=== PATIENT | female | born 1955 ===

== ENCOUNTER 2024-09-20 08:30 | Outpatient (AMB) | payer MEDICARE, SELFPAY ==
--- OUTSIDE RECORDS SUMMARY | 2024-09-20 08:41 | XMS_ITS | Patient Health Record ---
Author Organization [facility] Address [address] [facility] [address] [place] [address] Care Team Providers Care Associate Accountant Name Role Phone Oziel He MD Primary Care Provider Unavailab Piedad Lux Unavailable [phone] Allergies Allergen (clinical drug ingredient) Drug/Non Drug Allergy documented on EMR Reaction Allergy Type Onset Date Status meperidine DEMEROL Nausea/Vomiting/ Diarrhea Drug Allergy Active Results Component Value Reference Range Notes [id number] [id number] No Culture 30 Plus Reviewed date:12/04/2023 01:42:57 AM Interpretation: Performing Lab:[facility] [place], [address], [address], [place], Phone - [phone], Director - [facility] Notes/Report: Clinical Information:[id number] Dates / Results....06/13/19 NIL NEGHPV No. of containers..01 ThinPrep Vial DIAGNOSIS: NEGATIVE FOR IN TRAEPITHELIAL LESION OR MALIGNANCY. Specimen adequacy: Satisfactory for evaluation. Endocervical and/or squamous metaplastic cells (endocervical component) are present. Clinician provided ICD10: Z0 1.419 Performed by: Martell veronica Tunneller (ASCP) . . Note: The Pap smear is a screening test designed to aid in the detection of premalignant and malignant conditions of the uterine cervix. It is not a diagnostic procedure and should not be used as the sole means of detecting cervical cancer. Both false-positive and false-negative reports do occur. . Test Methodology: This liquid based ThinPrep(R) pap test was screened with the use of an image guided system. HPV Aptima Negative Negative This nucleic acid amplification test detects fourteen high-risk HPV types (16,18,31,33,35,39,45,51,52,56,58 ,59,66,68) without differentiation. HPV Genotype Reflex Criteria not met, HPV Genotype not performed. PDF Report Reviewed date:12/04/2023 01:42:38 AM Interpretation: Performing Lab:[facility], [address], [address], [place], Phone - [phone], Director - [facility] Notes/Report: Clinical Information:[id number] Dates / Results....06/13/19 NIL NEGHPV No. of containers..01 ThinPrep Vial Reason For Referral No Information Medications Medication SIG (Take, Route, Frequency, Duration) Notes Start Date End Date Status Cholesterol - as directed Acti ve Vitamin D3 50 MCG (1999) 1 capsule Orally Once a day for 30 day(s) Active Caltrate 600+D [id number] 1 ORAL daily for -3 Shun-MJ 04/17/2014 Active Singulair 10 MG 1 tablet Orally Once a day for 30 day(s) Active Estradiol 10 MCG 1 _insert Vaginal Tw o times a Week for 90 days 11/30/2023 Active Fish Oil 1200 MG 1 capsule Orally Onc e a day Active Social History Tobacco Use: Social History Observation Description Date Details (start date - stop date) Former Smoker NA - NA Tobacco Use/Smoking Question Answer Notes Are you a former smoker How long has it been since you last smoked? 5-10 years Alcohol Screen (Audit-C) Question Answer Notes Did you have a drink containing alcohol in the p ast year? No Points 0 Interpretation Negative Sexual History Question Answer Notes Had sex in the past 12 months (vaginal, oral, or anal)? 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) (684326532) Disorder of bone and cartilage, unspecified (733.90) Active confirmed Diag Problem Gynecological examination normal (569906480739163) Routine gynecological examination (V72.31) Active confirmed Major Problem Special screenin g for malignant neoplasms, colon (V76.51) Active confirmed Major Vital Signs Temperature 97.9 degrees Fahrenheit 11/30/2023 Blood pressure diastolic 74 mm Hg 11/30/2023 Height 59 in 11/30/2023 Blood pressure systolic 108 mm Hg 11/30/2023 Weight 120 lbs 11/30/2023 BMI 24.23 kg/m2 11/30/2023 Encounters Encounter Location Date Provider Diagnosis [address] [place] [address] 11/30/2023 Piedad Banks Encounter for gynecological examination (general) (routine) without abnormal findings Z01.419 ; Encounter for screening mammogram for malignant neoplasm of breast Z12.31 ; Other specified disorders of bone density and structure, multiple sites M85.89 ; Postmenopausal atrophic vaginitis N95.2 and Dense breasts, unspecified R92.30 Assessments Encounter Date Diagnosis (ICD Code) Assessment Notes Treatment Notes Treatment Clinical Notes Section Notes 11/30/2023 Encounter for gynecological examination (general) (routine) without abnormal findings (ICD-10 - Z01.419) PAP TEST WITH HPV TYPING WAS OBTAINED. 11/30/2023 Encounter for screening mammogram for malignant neoplasm of breast (ICD-10 - Z12.31) REGULAR MAMMOGRAMS AND SBE'S WERE RECOMMENDED. 11/30/2023 Other specified disorders of bone density and structure, multiple sites (ICD-10 - M85.89) DISCUSSED HER LAST BMD SHOWING SEVERE OSTEOPENIA AND ITS IMPLICATIONS. 3D MAMMOGRAMS WERE RECOMMENDED. ADEQUATE CALCIUM AND VIT D. WEIGHT BEARING EXERCISES. OSTEO PRECAUTIONS. REPEAT BMD IN 2023. 11/30/2023 Postmenopausal atrophic vaginitis (ICD-10 - N95.2) DISCUSSED FINDINGS, DX AND TX OPTIONS. DISCUSSED BENEFITS AND RISKS OF INTRAVAGINAL ESTROGEN. RECOMMENDED YUVAFEM. SHE HAS NO CONTRAINDICATIONS AND ACCEPTS RISKS. RX AND INSTRUCTIONS WERE GIVEN. USE INTRAVAGINAL LUBRICANTS. 11/30/2023 Dense breasts, unspecified (ICD-10 - R92.30) DISCUSSED DENSE BREASTS ON MAMMOGRAM AND ITS IMPLICATIONS. 3D MAMMOGRAMS WERE RECOMMENDED. Plan Of Treatment Pending Test Test Name Order Date MAMMOGRAM, SCREENING 08/27/2015 MAMMOGRAM, SCREENING 09/02/2021 MAMMOGRAM, SCREENING 11/30/2023 Urinalysis 08/27/2015 Urinalysis 04/19/2018 25OH VITAMIN D 03/10/2022 COMPREHENSIVE METABOLIC PANEL 03/10/2022 N-TELOPEPTIDE CROSS 03/10/2022 PTH, INTACT 03/10/2022 TSH 03/10/2022 BONE DENSITY 11/30/2023 BONE DENSITY 09/02/2021 MM Digital Mammo Screening 09/15/2022 MM Digital Mammo Screening 11/30/2023 MM Digital Mammo Screening 06/25/2020 MM Digital Mammo Screening 09/02/2021 Next Appt Details Provider Name:Piedad Gasca Terezaamy linda, 01/23/2025 10:00:00 AM, [address] [place] [address], [address], [place], [address], Insurance Providers Payer Name Payer Address Payer Phone Subscriber Number Group Number Insured Name Patient Relationship to Insured Coverage Start Date Coverage End Date MEDICARE [address] [place] [id number] [phone] [id number] JUDIE WARREN Self - patient is the insured [employer] OFF[employer] [address] [address] [place], [place] [id number] [phone] [id number] JUDIE WARREN Self - patient is the insured Medical (General) History Medical History History ICD Code Disorder of bone density and structure, unspecified M85.9 Hyperlipidemia, unspecified E78.5 Calculus of kidney N20.0 Menopausal and female climacteric states N95.1 Postmenopausal atrophic vaginitis N95.2 Inconclusive mammogram R92.2 Mammographic heterogeneous density, bila teral breasts R92.333 Surgical History Surgery Date(Month/Year) Appendectomy Bilateral Tubal Ligation Colonoscopy Lithotripsy Hospitalization History Reason Date(Month/Year) See Surgical Hx 1 Vaginal Delivery
--- OUTSIDE RECORDS SUMMARY | 2024-09-20 08:42 | XMS_ITS ---
Author Organization [facility] Address [address] [place] [address] Care Team Providers Care Medical Pathology Teacher Name Role Phone Ying DAILEY, Oziel Primary Care Provider Unavailab Piedad Lux Unavailable [phone] REASON FOR VISIT Annual NURSING SUPPORT WORKER Physical Encounters Encounter Location Date Provider Diagnosis [place] [email or web address] [facility] [address] [place] [address] 09/21/2023 Piedad Banks Plan Of Treatment Next Appt Details Provider Name:Piedad mckeon, 01/23/2025 10:00:00 AM, [address] [facility], [address], [place], [address], Progress Notes * JUDIE WARRENDOB:1955 (69 yo F)Acc No.[id number]:09/21/2023 PROGRESS NOTES Patient:?JUDIE WARREN Appointment Provider:?Piedad mckeon M.D. :1955???Age:68 Y???Sex:Female D ate:09/21/2023 Address:[address] [place] [address] [facility] Pcp:Oziel He MD Subjective: * Chief Complaints: * ???1. Annual NURSING SUPPORT WORKER Physical. * Medical History:? Objective: * Vitals:? Assessment: Plan: * Treatment: * Images: Billing Information: * Visit Code:? * Procedure Codes:? * Electronic signature of Billy Banks MD on 09/20/2024 at 08:41 AM EDT Sign off status: Pending * Appointment Provider:?Piedad Banks M.D. Date:?09/21/2023 Generated for Nhi esquivel/Desiree/Jesus on:?09/20/2024 08:41 AM EDT
--- NOTE | 2024-09-20 08:50 | AM.OFFWIN_ITS ---
Intake Vital Signs 09/20/24 08:51 Weight 123 lb BP 130/80 Blood Pressure Location Rt brachial Position Sitting Pulse 102 H Pulse Source Pulse Oximeter Temp 98.9 F Temp Source Oral Pulse Oximetry (%) 98 Oxygen Delivery Method Room Air Intake Visit Reasons: OPERATIONS ARCHITECT cold/flu symptoms Intake Note: Patient here for headaches, cough and slight congestion that started last week. Patient Tobacco Use Status: Never used Tobacco Allergies meperidine [From Demerol] Adverse Reaction (Mild, Verified 09/20/24 08:52) Vomiting Do you need a note to return to daycare/school/sports/work: No HPI HPI Comments History of Present Illness Details This is a 69-year-old female with a past medical history of seasonal allergies for which she takes Singulair ?occasionally? presenting for evaluation of a sore throat and sinus congestion that she has had since Thursday morning. Patient denies having any fevers, chills, otalgia, cough or shortness for breath. Patient has not taken any additional medication for treatment of her symptoms. 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 [facility] Social History Patient Tobacco Use Status: Never used Tobacco Review of Systems Const All systems reviewed & are unremarkable except as noted in HPI and below Reports as per HPI and Reports headache(s) Eyes Reports no additional complaints ENT Reports no additional complaints, Denies otalgia, Denies facial pain, Reports headache(s), Denies nasal obstruction, Denies odynophagia, Reports sinus pressure and Reports sore throat Card Reports no additional complaints Resp Reports no additional complaints GI Reports no additional complaints and Denies odynophagia Reports no additional complaints Musc Reports no additional complaints Skin/Breast Reports system reviewed and no additional complaints, except as documented Neuro Reports no additional complaints and Reports headache(s) Psych Reports no additional complaints Endo Reports no additional complaints Luciano/Lymph Reports no additional complaints Aller/Immun Reports no additional complaints Physical Exam Vital Signs: Last Vital Signs Temp 98.9 F 09/20/24 08:51 Pulse 102 H 09/20/24 08:51 BP 130/80 09/20/24 08:51 Pulse Ox 98 09/20/24 08:51 Oxygen Delivery Method Room Air 09/20/24 08:51 recheck heart rate 92bpm Const General: cooperative, healthy appearing, comfortable, no acute distress, well developed, alert, awake and Physically active Nutritional Appearance: average body habitus Orientation/consciousness: patient oriented x3 Limitations: no limitations HEENT Head: Yes normal to inspection and Yes normocephalic Ears: hearing grossly normal bilaterally, external ears normal, TM's abnormal bilaterally (TMs bulging bilaterally, no erythema, no fluid level appreciated) and EAC's normal General nose exam: Normal external nose present Face and sinus: Yes normal facial exam and Yes sinuses nontender Mouth: Normal oral and palatal mucosa present Throat: Yes posterior oropharynx normal and No postnasal drainage Eyes General: appearance normal, both eyes and all related structures Resp Effort & Inspection: normal respiratory effort and not tachypneic Auscultation: clear to auscultation bilaterally Cardio Rate: regular rate (92) Rhythm: regular rhythm Neuro General: patient oriented x3 Psych Appearance: grossly normal Mental Status: mental status grossly normal Insight: Good insight present (Psych) Judgement: Good judgement present (Psych) Assessment & Plan Assessment & Plan (1) Allergic rhinitis: Comment: There is no clinical evidence of a bacterial sinusitis or otitis media. Code(s): J30.9 - Allergic rhinitis, unspecified Qualifiers: Allergic rhinitis trigger: unspecified Allergic rhinitis seasonality: seasonal Qualified Code(s): J30.2 - Other seasonal allergic rhinitis Plan: Fluticasone nasal spray and loratadine 10 mg each once daily as prescribed; patient is instructed to continue Singulair daily. Medications: New fluticasone propionate 50 mcg/actuation administer into each nostril 1 spray intranasal DAILY 16 grams 1RF loratadine (Allergy Relief (loratadine)) 10 mg PO DAILY 30 caps 0RF Coding Level of Care Code Est Pt Level 3 (28828) Diagnoses Seasonal allergic rhinitis, unspecified trigger J30.2 Allergic rhinitis trigger: unspecified Allergic rhinitis seasonality: seasonal Time Spent (min) 20
[2024-09-20 08:51] VITALS: BP 130/80; PULSE 102; TEMP 37.2; O2SAT 98
== END 2024-09-20 09:04 | disposition home or self-care (01) ==
PROVIDERS: Visit Provider Physician Assistant
DX: J30.2 Other seasonal allergic rhinitis (principal)

== ENCOUNTER → 2024-09-20 08:30 | Outpatient (BNVA) | payer MEDICARE, SELFPAY | PROVIDERS: Visit Provider Physician Assistant | DX: J30.2 Other seasonal allergic rhinitis (principal) | CPT/HCPCS: 99212 ==